=== PATIENT | male | born 1970 | race Caucasian/White ===

== ENCOUNTER 2018-06-15 11:32 | Inpatient (IN) | payer OTHER ==
[~2018-06-15] VITALS: Ht 177.8 cm; Wt 110.0 kg
[2018-06-15] MEDS ORDERED: ONDANSETRON ODT 4 MG TAB PO ONE (11:45)
[2018-06-15] MEDS ORDERED: SODIUM CHLORIDE 0.9% 1,000 ML IV ONE ×2 (12:00)
[2018-06-15 12:44] LABS: Basophils # (auto) 0 uL; Basophils % (auto) 0.2 % (0.0-2.0); Eosinophils # (auto) 0 uL; Hemoglobin 15.9 g/dL (13.5-17.5); Lymphocytes # (auto) 0.4 uL; Lymphocytes % (auto) 4.6 % (10.0-50.0); Mean Corpuscular Hgb Conc. 34.5 g/dL (32.0-36.0); Mean Corpuscular Volume 92.7 fL (80.0-100.0); Monocytes # (auto) 0.6 uL; Monocytes % (auto) 6.2 % (0.0-12.0); Neutrophils # (auto) 8.4 uL; Nucleated Red Blood Cells % 0.2 %; Platelet Count (auto) 191 10^3/uL (140-450); Red Blood Cells 4.97 10^6/uL (4.5-5.90); Red Cell Distribution Width 13.7 % (11.8-14.3); White Blood Cell 9.5 10^3/uL (4.4-10.8)
[2018-06-15] MEDS ORDERED: KETOROLAC TROMETH 30 MG/ML 1ML VIAL IV ONE (13:00)
[2018-06-15 13:01] LABS: Alanine Aminotransferase 35 U/L (16-61); Albumin 3.8 g/dL (3.4-5.0); Anion Gap 13 (5-15); Aspartate Aminotransferase 21 U/L (15-37); BUN/Creatinine Ratio 22.7; Blood Urea Nitrogen 17 mg/dL (7-18); Calcium 8.3 mg/dL (8.5-10.1); Carbon Dioxide 20 mmol/L (21-32); Chloride 105 mmol/L (98-107); GFR African American 144 mL/min; GFR Non-African American 119 mL/min; Glucose 117 mg/dL (74-106); Potassium 3.2 mmol/L (3.5-5.1); Sodium 138 mmol/L (136-145)
[2018-06-15 13:06] LABS: Alkaline Phosphatase 66 U/L (45-117); Bilirubin, Total 0.9 mg/dL (0.2-1.0); Total Protein 8.1 g/dL (6.4-8.2)
[2018-06-15] MEDS ORDERED: PROMETHAZINE HCL 25 MG/ML 1ML ONE (13:51)
[2018-06-15] MEDS ORDERED: PROMETHAZINE HCL 25 MG/ML 1ML IV ONE (14:00)
[2018-06-15] MEDS ORDERED: POTASSIUM CHL 20MEQ/100ML 100 ML IV ONE ×2 (15:00→18:00)
[2018-06-15 16:28] LABS: Urine Bacteria NONE SEEN /hpf (None Seen); Urine Blood 2+ /uL (Negative); Urine Mucus FEW (None Seen); Urine Specific Gravity 1.036 (1.001-1.035); Urine WBC 1 /hpf (0 - 3)
[2018-06-15 16:43] LABS: Amphetamine Screen, Urine NEGATIVE (NEGATIVE); Barbiturate Scree,Urine NEGATIVE (NEGATIVE); Benzodiazephine Screen, Urine NEGATIVE (NEGATIVE); Cannabinoid Screen, Urine NEGATIVE (NEGATIVE); Cocaine Screen, Urine NEGATIVE (NEGATIVE); Opiate Scree,Urine NEGATIVE (NEGATIVE); Phencyclidine Screen, Urine NEGATIVE (NEGATIVE)
[2018-06-15] MEDS ORDERED: SODIUM CHLORIDE 0.9% 2,000 ML IV ONE (17:15)
[2018-06-15] MEDS ORDERED: cefTRIAXone 1GM/10ml IVPUSH 10 ML IV ONE (17:15)
[2018-06-15] MEDS ORDERED: metroNIDAZOLE 500MG/100ML 100 ML IV ONE (17:15)
[2018-06-15] MEDS ORDERED: ACETAMINOPHEN 325 MG TAB PO PRN (17:30)
[2018-06-15] MEDS ORDERED: FAMOTIDINE (10MG/ML) 2ML VL IV ONE (17:30)
[2018-06-15] MEDS ORDERED: PANTOPRAZOLE 40 MG/10 ML VIAL IV ONE (17:30)
[2018-06-15] MEDS ORDERED: MORPHINE SULF INJ 2 MG/ML SYRINGE 1ML IV PRN (17:30)
[2018-06-15] MEDS ORDERED: CYCLOBENZAPRINE HCL 10 MG TAB PO PRN (17:30)
[2018-06-15] MEDS ORDERED: cloNIDine HCL 0.1 MG TAB PO PRN (17:30)
[2018-06-15] MEDS ORDERED: NITROGLYCERIN 0.4 MG SL TAB SL PRN (17:30)
[2018-06-15] MEDS ORDERED: TEMAZEPAM 15 MG CAP PO PRN (17:30)
[2018-06-15] MEDS ORDERED: DOCUSATE SOD 100 MG CAP PO PRN (17:30)
[2018-06-15] MEDS ORDERED: ONDANSETRON HCL 4 MG/2 ML VIAL IV PRN (17:30)
[2018-06-15] MEDS: SODIUM CHLORIDE 0.9% 1,000 ML IV SCH (18:42)
[2018-06-15] MEDS: OXYCODONE W/ ACETAMINOPHEN 5/325MG TABLET PO PRN (19:43)
[2018-06-15 20:30] VITALS: BP 156/90
[2018-06-15] MEDS: GABAPENTIN 400 MG CAP PO SCH (21:54)
[2018-06-15] MEDS: QUEtiapine FUMARATE 100 MG TAB PO SCH (21:54)
[2018-06-15] MEDS: DOXEPIN HCL 25 MG CAPSULE PO SCH ×2 (21:54→22:00)
[2018-06-15] MEDS: traZODone HCL 50 MG TAB PO SCH (21:54)
[2018-06-15] MEDS ORDERED: QUEtiapine FUMARATE 100 MG TAB ONE ×2 (22:03→22:05)
[2018-06-16] MEDS: SODIUM CHLORIDE 0.9% 1,000 ML IV SCH ×3 (00:49→18:52)
[2018-06-16] MEDS ORDERED: CLON0.1T PO (01:20)
[2018-06-16] MEDS ORDERED: QUET300T23 PO (01:20)
[2018-06-16] MEDS ORDERED: CYCL1TAB18 PO (01:20)
[2018-06-16] MEDS ORDERED: SUMA100T15 PO (01:20)
[2018-06-16] MEDS ORDERED: TRAZ150T84 PO (01:20)
[2018-06-16] MEDS ORDERED: CITA-73 PO (01:20)
[2018-06-16] MEDS ORDERED: DOXE25CA2 PO (01:20)
[2018-06-16] MEDS ORDERED: RANI150C11 PO (01:20)
[2018-06-16] MEDS ORDERED: GABA300C10 PO (01:20)
[2018-06-16] MEDS ORDERED: HYDR-4683 PO (01:20)
[2018-06-16] MEDS: metroNIDAZOLE 500MG/100ML 100 ML IV SCH ×3 (01:35→18:52)
[2018-06-16] MEDS: OXYCODONE W/ ACETAMINOPHEN 5/325MG TABLET PO PRN ×3 (01:38→21:52)
[2018-06-16] MEDS: GABAPENTIN 400 MG CAP PO SCH ×3 (05:39→21:52)
[2018-06-16 05:42] VITALS: BP 144/70
[2018-06-16 07:42] LABS: Basophils # (auto) 0 uL; Basophils % (auto) 0.3 % (0.0-2.0); Eosinophils # (auto) 0.1 uL; Eosinophils % (auto) 1.2 % (0.0-7.0); Hematocrit 39.4 % (41.0-53.0); Hemoglobin 13.4 g/dL (13.5-17.5); Lymphocytes # (auto) 1.1 uL; Lymphocytes % (auto) 23.5 % (10.0-50.0); Mean Corpuscular Hemoglobin 32.6 pg (28.0-32.0); Mean Corpuscular Hgb Conc. 34.1 g/dL (32.0-36.0); Mean Corpuscular Volume 95.6 fL (80.0-100.0); Monocytes # (auto) 0.7 uL; Monocytes % (auto) 14.2 % (0.0-12.0); Neutrophils # (auto) 2.9 uL; Neutrophils % (auto) 60.8 % (37.0-80.0); Nucleated Red Blood Cells % 0.1 %; Platelet Count (auto) 146 10^3/uL (140-450); Red Blood Cells 4.12 10^6/uL (4.5-5.90); Red Cell Distribution Width 13.9 % (11.8-14.3); White Blood Cell 4.8 10^3/uL (4.4-10.8)
[2018-06-16 08:00] VITALS: BP 133/79
[2018-06-16 08:00] LABS: BUN/Creatinine Ratio 18.8; Bilirubin, Total 0.4 mg/dL (0.2-1.0); Calcium 7.2 mg/dL (8.5-10.1); Potassium 3.3 mmol/L (3.5-5.1); Total Protein 6.3 g/dL (6.4-8.2)
[2018-06-16 09:00] VITALS: BP 133/79
[2018-06-16] MEDS: MULTIPLE VITAMIN TAB PO SCH (09:30)
[2018-06-16] MEDS: CITALOPRAM HYDROBR 20 MG TAB PO SCH (09:30)
[2018-06-16] MEDS: cefTRIAXone 1GM/10ml IVPUSH 10 ML IV SCH (09:31)
[2018-06-16] MEDS: DOXEPIN HCL 25 MG CAPSULE PO SCH ×2 (09:31→21:52)
[2018-06-16] MEDS: FAMOTIDINE (10MG/ML) 2ML VL IV SCH (09:48)
[2018-06-16] MEDS ORDERED: PANTOPRAZOLE 40 MG/10 ML VIAL IV SCH (10:00)
[2018-06-16] MEDS: SUMAtriptan SUCCINATE 6 MG/0.5 ML VL SC PRN (11:06)
[2018-06-16] MEDS: POTASSIUM CHL 20 Meq TABLET PO SCH ×2 (11:07→21:52)
[2018-06-16 13:00] VITALS: BP 122/89
[2018-06-16 17:30] VITALS: BP 128/94
[2018-06-16] MEDS: traZODone HCL 50 MG TAB PO SCH (21:52)
[2018-06-16 22:02] VITALS: BP 132/72
[2018-06-16] MEDS ORDERED: QUEtiapine FUMARATE 100 MG TAB ONE ×2 (22:10→22:11)
[2018-06-16] MEDS: QUEtiapine FUMARATE 100 MG TAB PO SCH (22:12)
[2018-06-17] MEDS: metroNIDAZOLE 500MG/100ML 100 ML IV SCH ×2 (02:15→13:46)
[2018-06-17] MEDS: SODIUM CHLORIDE 0.9% 1,000 ML IV SCH (02:49)
[2018-06-17] MEDS: SUMAtriptan SUCCINATE 6 MG/0.5 ML VL SC PRN (03:37)
[2018-06-17 05:20] VITALS: BP 147/81
[2018-06-17] MEDS: GABAPENTIN 400 MG CAP PO SCH ×2 (05:33→13:49)
[2018-06-17 07:24] LABS: Basophils # (auto) 0 uL; Basophils % (auto) 0.9 % (0.0-2.0); Eosinophils # (auto) 0.2 uL; Hematocrit 42.3 % (41.0-53.0); Hemoglobin 14.2 g/dL (13.5-17.5); Lymphocytes # (auto) 1.2 uL; Lymphocytes % (auto) 27.6 % (10.0-50.0); Mean Corpuscular Hemoglobin 32.3 pg (28.0-32.0); Mean Corpuscular Hgb Conc. 33.7 g/dL (32.0-36.0); Monocytes # (auto) 0.6 uL; Monocytes % (auto) 15.2 % (0.0-12.0); Neutrophils # (auto) 2.2 uL; Neutrophils % (auto) 52.3 % (37.0-80.0); Nucleated Red Blood Cells % 0.1 %; Platelet Count (auto) 140 10^3/uL (140-450); Red Cell Distribution Width 14.3 % (11.8-14.3); White Blood Cell 4.2 10^3/uL (4.4-10.8)
[2018-06-17 07:41] LABS: INR 0.95 (0.9-1.15); Partial Thromboplastin Time 21.2 sec (23.78-33.04); Prothrombin Time 10.2 sec (9.27-12.13)
[2018-06-17 07:45] LABS: BUN/Creatinine Ratio 14.1; Calcium 8.4 mg/dL (8.5-10.1); Potassium 3.7 mmol/L (3.5-5.1)
[2018-06-17 08:00] VITALS: BP 147/81
[2018-06-17] MEDS ORDERED: LIDOCAINE VISCOUS 2% 15ML UD ONE (08:33)
[2018-06-17] MEDS ORDERED: SODIUM CHLORIDE LOCK 10 ML ONE (08:33)
[2018-06-17] MEDS ORDERED: diphenhdrAMINE HCL 50 MG/1 ML VL ONE (08:34)
[2018-06-17 09:00] VITALS: BP 119/75
[2018-06-17] MEDS: cefTRIAXone 1GM/10ml IVPUSH 10 ML IV SCH (09:00)
[2018-06-17] MEDS: FAMOTIDINE (10MG/ML) 2ML VL IV SCH (10:00)
[2018-06-17] MEDS: DOXEPIN HCL 25 MG CAPSULE PO SCH (10:00)
[2018-06-17] MEDS: fentaNYL CITRATE 100 MCG/2 ML VL ONE ×2 (12:05→12:08)
[2018-06-17] MEDS: MIDAZOLAM HCL 5 MG/ML-1ML VIAL ONE ×3 (12:05→12:11)
[2018-06-17] MEDS: CITALOPRAM HYDROBR 20 MG TAB PO SCH (13:47)
[2018-06-17] MEDS: MULTIPLE VITAMIN TAB PO SCH (13:49)
[2018-06-17] MEDS: OXYCODONE W/ ACETAMINOPHEN 5/325MG TABLET PO PRN (13:50)
[2018-06-17 14:06] VITALS: BP 111/69
[2018-06-18] MEDS ORDERED: PANTOPRAZOLE 40 MG TAB PO SCH (10:00)
== END 2018-06-17 16:30 | disposition home or self-care (01) | DRG 872 ==
LOC: ER 11:32 → TELE 11:33 → TELE-CENTR 20:12
PROVIDERS: ADMIT Internal Medicine; ATTEND Internal Medicine
PROC: 0DB68ZX Excision of Stomach, Via Natural or Artificial Opening Endoscopic, Diagnostic (ICD-10-PCS; principal; 2018-06-17 12:00)
DX: A41.9 Sepsis, unspecified organism (principal); N39.0 Urinary tract infection, site not specified; K92.1 Melena; A08.4 Viral intestinal infection, unspecified; M54.9 Dorsalgia, unspecified; G89.4 Chronic pain syndrome; E83.51 Hypocalcemia; E87.6 Hypokalemia; K29.70 Gastritis, unspecified, without bleeding; K29.80 Duodenitis without bleeding; K76.0 Fatty (change of) liver, not elsewhere classified; F17.290 Nicotine dependence, other tobacco product, uncomplicated; E86.0 Dehydration; E88.89 Other specified metabolic disorders; G62.9 Polyneuropathy, unspecified; R31.9 Hematuria, unspecified; Z82.3 Family history of stroke; Z83.3 Family history of diabetes mellitus; Z98.1 Arthrodesis status
CPT/HCPCS: 36415; 43239; 74176; 80048; 80053; 80307; 81001; 83735; 84484; 85025; 85610; 85730; 86850; 86900; 86901; 87086; 93005; 96361; 96374; 96375; C9113; J0696; J1885; J2250; J2405; J3480; J3490; Q0162